=== PATIENT | male | born 1990 | race African-American/Black ===

== ENCOUNTER 2018-10-03 10:20 | Emergency (ER) | payer OTHER ==
[~2018-10-03] VITALS: Ht 170.2 cm; Wt 108.9 kg
[2018-10-03 10:29] VITALS: BP 132/84
[2018-10-03] MEDS ORDERED: MELO7.5T29 PO (10:37)
[2018-10-03] MEDS ORDERED: CLIN150C14 PO (10:37)
[2018-10-03] MEDS ORDERED: HYDR-3165 PO (10:37)
--- NOTE | 2018-10-03 10:38 | PHYS DOC ---
Past History Past Medical History: Asthma Past Surgical History: No Surgical History Smoking: Cigarettes Alcohol Use: Occasionally Drug Use: None Adult General Chief Complaint Chief Complaint: DENTAL PROBLEM HPI HPI Patient is a 28-year-old male who presents with right lower dental pain. Patient has been having issues with his next to last tooth on the right side for a while but another piece broke yesterday and has been having increased pain since that time. Patient denies any fever. No difficulty swallowing. Increased pain with cold exposure.[] Review of Systems Review of Systems Constitutional: Denies fever or chills [] Eyes: Denies change in visual acuity, redness, or eye pain [] HENT: Denies nasal congestion or sore throat [] Respiratory: Denies cough or shortness of breath [] Cardiovascular: No chest pain or palpitations[] GI: Denies abdominal pain, nausea, vomiting, bloody stools or diarrhea [] : Denies dysuria or hematuria [] Musculoskeletal: Denies back pain or joint pain [] Integument: Denies rash or skin lesions [] Neurologic: Denies headache, focal weakness or sensory changes [] Endocrine: Denies polyuria or polydipsia [] All other systems were reviewed and found to be within normal limits, except as documented in this note. Allergies Allergies Allergies Coded Allergies Type Severity Reaction Last Updated Verified Penicillins Allergy Intermediate 10/03/18 Yes Physical Exam Physical Exam Constitutional: Well developed, well nourished, no acute distress, non-toxic appearance. [] HENT: Normocephalic, atraumatic, bilateral external ears normal, oropharynx moist, no oral exudates, nose normal. Tooth #31 has a break on the posterior aspect. There is no drainable abscess present. No palpable swelling in the region. [] Eyes: PERRLA, EOMI, conjunctiva normal, no discharge. [] Neck: Normal range of motion, no tenderness, supple, no stridor. [] Cardiovascular:Heart rate regular rhythm, no murmur [] Lungs & Thorax: Bilateral breath sounds clear to auscultation [] Abdomen: Not examined. [] Skin: Warm, dry, no erythema, no rash. [] Back: Not examined. [] Extremities: No tenderness, no cyanosis, no clubbing, ROM intact, no edema. [] Neurologic: Alert and oriented X 3, normal motor function, normal sensory function, no focal deficits noted. [] Psychologic: Affect normal, judgement normal, mood normal. [] EKG EKG [] Radiology/Procedures Radiology/Procedures [] Course & Med Decision Making Course & Med Decision Making Pertinent Labs and Imaging studies reviewed. (See chart for details) Medical decision making: Patient with tooth #31 pain. Will give him a list for local clinics that provide dental care. No evidence of Ar exam Gen. a, no evidence of large drainable abscess. We will cover for the possibility of a periapical abscess given his penicillin allergy.[] Dragon Disclaimer Dragon Disclaimer This electronic medical record was generated, in whole or in part, using a voice recognition dictation system. Departure Departure: Impression: Primary Impression: Pain, dental Disposition: HOME, SELF-CARE Condition: IMPROVED Patient Instructions: Dental Pain Additional Instructions: Follow-up with your regular doctor or dentist in 2 days. A list of local dental clinics is being provided for you. Take the medication as prescribed. Return to the ER if worsening pain or any other concerns. Scripts Clindamycin Hcl (CLINDAMYCIN HCL) 150 Mg Capsule 2 CAP PO QID for dental infection, #80 CAP Prov: HEMANTH GONSALEZ DO 10/03/18 Hydrocodone Bit/Acetaminophen (NORCO 5-325 TABLET) 1 Each Tablet 1-2 TAB PO Q4-6HRS for severe pain, #20 TAB Prov: HEMANTH GONSALEZ DO 10/03/18 Meloxicam (MELOXICAM) 7.5 Mg Tablet 7.5 MG PO DAILY for PAIN, #20 TAB Prov: HEMANTH GONSALEZ DO 10/03/18 HEMANTH GONSALEZ DO Oct 03, 2018 10:38
== END 2018-10-03 10:41 | disposition home or self-care (01) ==
LOC: ER 10:20
DX: K08.89 Other specified disorders of teeth and supporting structures (principal); J45.909 Unspecified asthma, uncomplicated; F17.210 Nicotine dependence, cigarettes, uncomplicated; Z88.0 Allergy status to penicillin
CPT/HCPCS: 99283